=== PATIENT | female | born 1995 | race Caucasian/White ===

== ENCOUNTER → 2020-02-12 13:18 | Outpatient (CLI) | payer MEDICAID, SELFPAY | PROVIDERS: Referring Provider Otolaryngology; Visit Provider Otolaryngology | DX: Z11.59 Encounter for screening for other viral diseases (principal) | CPT/HCPCS: 87635; G2023; U0003 ==

== ENCOUNTER 2020-03-14 10:16 | Day surgery (SDC) | payer MEDICAID, SELFPAY ==
[2020-03-14] VITALS (13 sets, daily range): BP systolic 105–155; BP diastolic 8–132; PULSE 72–102; RESP 16–24; TEMP 36.3–36.7; O2SAT 92–98; BMI 52.8
[2020-03-14 11:06] LABS: Internal QC Validated? YES +Cl - CLEAR BKGD; Pregnancy, Urine Negative Negative
[2020-03-14] MEDS: Lactated Ringers 1,000 ML 100 ML IV ×2 (11:25→12:33)
--- NOTE | 2020-03-14 11:43 | DCINST_ITS ---
Discharge Diet: No Restrictions Discharge Activity: Return to Normal Activity Additional Activity Instructions:: Ear drops 5 drops each ear twice a day for 2 days (3 doses) Allergies/Adverse Reactions: Allergies amoxicillin Allergy (Verified 03/14/20 11:01) Hives cephalexin [From Keflex] Allergy (Verified 03/14/20 11:01) PT UNSURE OF REACTION pseudoephedrine [From Sudafed] Allergy (Verified 03/14/20 11:01) Shortness of breath vancomycin Allergy (Verified 03/14/20 11:01) Itching Medications to take at Discharge NK 02/17/20 Primary Care Physician: Laisha Wolfe DO [Primary Care Provider] - Test Results: Test results from this visit will be discussed in further detail at your follow- up appointment, if applicable.
--- NOTE | 2020-03-14 11:59 | PCM.OPRPT ---
Report of Operation Date of Procedure: 03/14/20 Pre-Operative Diagnosis: recurrent acute otitis media Post-Operative Diagnosis: same Surgery/Procedure Performed:: bilateral myringotomy with tubes Description of Surgical Findings:: full mucoid effusion right ear Type of Anesthesia:: General Anesthesiologist: Daniel Gomes Estimated Blood Loss (mL): minimal Description of Procedure: The patient was taken to the operating room on . The patient was placed in the supine position on the operating room table. The patient was given sufficient general anesthesia. The operating microscope was used throughout the entire case. A speculum was inserted into the patient's left ear. Cerumen was removed using a curette. An incision was placed in the anterior inferior quadrant of the tympanic membrane. A T tube was placed without difficulty. Antibiotic drops were instilled into the patient's ear. Next, a speculum was inserted into the patient's right ear. Cerumen was removed using a curette. An incision was placed in the anterior inferior quadrant of the tympanic membrane. A full mucoid effusion was suctioned away using a #5 suction. A t tube was placed without difficulty. Antibiotic drops were instilled into the patient's ear. The patient was then awoken. They were brought to the recovery room in stable condition. Blood loss minimal replacement none sponge needle and instrument counts correct at the end of the procedure.
--- NOTE | 2020-03-14 12:52 | SUR.PHASEI ---
1240: pt crying, went to give dilaudid when pt stated that she was itching on her feet and stomach. stomach red with small little bumps, nothing noted on feet. T/C to Dr Zully Gomes to report itching and rash about 5min after giving ativan. Order for benadryl received.
[2020-03-14] MEDS: Acetaminophen 325 MG Tablet 650 MG PO (13:44)
== END 2020-03-14 15:19 | disposition home or self-care (01) ==
LOC: SDC 10:16 → AC 10:18
PROVIDERS: Anesthesiology; PCP Internal Medicine; Referring Provider Otolaryngology; Visit Provider Otolaryngology
PROC: (CPT 69436; principal; 2020-03-14 11:45)
DX: H66.006 Acute suppurative otitis media without spontaneous rupture of ear drum, recurrent, bilateral (principal); K21.9 Gastro-esophageal reflux disease without esophagitis; Z11.59 Encounter for screening for other viral diseases; F17.210 Nicotine dependence, cigarettes, uncomplicated
CPT/HCPCS: 00126; 69436; 81025; 87635; G2023; J7120; J2405; U0003

== ENCOUNTER 2024-02-21 16:14 | Emergency (ER) | payer MEDICAID, SELFPAY ==
[2024-02-21 16:16] VITALS: BP 153/106; PULSE 116; RESP 18; TEMP 36.2; O2SAT 98; BMI 62.5
--- NOTE | 2024-02-21 16:30 | EX.ED.DYSGE1 ---
HPI History of Present Illness Chief Complaint: Lower Extremity Injury Detail of Chief Complaint: Knee pain Informant: patient Narrative Narrative: Patient has a history of osteogenesis imperfecta with multiple fractures around her right knee. She had surgery at [facility] in 2010 which required pins and screws. She fell in her kitchen 2 days ago. X-rays reportedly showed a hairline fracture at one of the pin sites. This was reviewed with Ortho and they recommended she go to the emergency room yesterday to get a knee brace. She states she went to 3 different emergency room's to find one that had a knee brace the right size for her. When she asked for pain medication she states that she felt that she was being labeled as a drug seeker and they would not write her any prescriptions. She reports problems with oxycodone and hydrocodone in the past causing itching or vomiting. She has done well with tramadol in the past. She has an appointment to see orthopedics on Saturday. When she was spoke with them about potentially getting pain medication for the weekend she was told to go the emergency room. PFSH PFSH Medical History Seizures History of wrist fracture Arthritis Brittle bone disease Home Medications ?Medication ?Instructions ?Recorded ?Last Taken ?Type tramadol 50 mg tablet 50 mg PO Q4H PRN Pain #20 tabs 02/21/24 Unknown Rx Allergy/AdvReac Type Severity Reaction Status Date / Time clindamycin Allergy Unknown PT UNSURE Verified 02/21/24 16:15 OF REACTION amoxicillin Allergy Hives Verified 02/21/24 16:15 cephalexin (From Keflex) Allergy PT UNSURE Verified 02/21/24 16:15 OF REACTION lorazepam Allergy Rash Verified 02/21/24 16:15 pseudoephedrine (From Allergy Shortness Verified 02/21/24 16:15 Sudafed) of breath vancomycin Allergy Itching Verified 02/21/24 16:15 Surgical History Hx of knee surgery Social History Smoking Status: Current some day smoker ROS ROS ED Constitutional Constitutional ED: Denies chills or fever(s) Eyes Eyes: Denies change in vision Cardiovascular Cardiovascular: Denies chest pain or palpitations Respiratory/Chest Respiratory/Chest: Denies cough or dyspnea Gastrointestinal Gastrointestinal: Denies abdominal pain Musculoskeletal Musculoskeletal: Reports arthralgias; Denies back pain Psychiatric Psychiatric: Denies anxiety or depression EXAM Physical Exam Const Vital Signs: 02/21/24 16:16 Temperature 97.1 F L Temperature Source Temporal Pulse Rate 116 H Respiratory Rate 18 Blood Pressure 153/106 H Blood Pressure Mean 121 Pulse Ox 98 Oxygen Delivery Method Room Air Positive well nourished and well developed General Appearance ED: well developed HEENT Reports moist mucous membranes Eyes EOMs intact bilaterally Chest Wall inspection of chest normal and palpation of chest normal Resp normal respiratory effort and clear to auscultation bilaterally Cardio regular rate and regular rhythm GI non-tender Palpation: soft Extremity Extremity Narrative: Knee immobilizer in place to the right lower extremity. Good distal pulses. Neuro oriented x3 MDM MDM MDM Narrative Medical decision making narrative: Patient does feel that the immobilizer she has is giving her good support. We discussed also using crutches, however she has had a prior shoulder injury as well as bilateral wrist surgeries and does not feel that she can use crutches. We discussed pain medication options. She did recently get a prescription for tramadol but should be out based on the way it was written. She states this seems to work well for her for pain. We talked about a history of seizures. She states she had seizures as a child but her last seizure was at age 4. We did discuss that tramadol can decrease her seizure threshold and she needs to be cautious of this. I will write her a short course of tramadol for the weekend and she will follow-up with orthopedics on Saturday. Discharge Plan Triage Chief Complaint: Lower Extremity Injury ED Provider: Marce Begum Dx/Rx/DC Orders Clinical Impression: Closed fracture of knee region Instructions: ED Fracture, Knee Prescriptions: New tramadol 50 mg tablet 50 mg PO Q4H PRN (Reason: Pain) Qty: 20 0RF Primary Care Provider: Alvin Mayo Referrals: Alvin Mayo MD [Primary Care Provider] - Print Language: Estonian Disposition Disposition: Home, Self Care
== END 2024-02-21 16:44 | disposition home or self-care (01) ==
LOC: ED 16:40
PROVIDERS: Emergency Provider Emergency Medicine; PCP Internal Medicine; Visit Provider Emergency Medicine
DX: S82.001A Unspecified fracture of right patella, initial encounter for closed fracture (principal); F17.200 Nicotine dependence, unspecified, uncomplicated; W19.XXXA Unspecified fall, initial encounter
CPT/HCPCS: 99282

== ENCOUNTER 2024-02-22 11:37 | Emergency (ER) | payer MEDICAID, SELFPAY ==
[2024-02-22 11:38] VITALS: BP 146/94; PULSE 120; RESP 24; TEMP 36.6; O2SAT 95; BMI 53.4
--- NOTE | 2024-02-22 12:03 | EX.ED.DYSGE1 ---
HPI <DAMIAN Santos - Last Filed: 02/22/24 15:10> History of Present Illness Chief Complaint: Lower Extremity Injury Narrative Narrative: 28-year-old female with past medical history of osteogenesis imperfecta was seen here yesterday after she reports having x-rays that showed a hairline fracture of the right knee. She has a history of multiple right knee and leg surgeries with pins. She states she went to multiple emergency rooms and came here to find a knee brace that fit. She was prescribed tramadol 50 mg #20 tablets and is taking 2 tablets every 4 hours but states that is not controlling her pain. She has an appointment with orthopedics in [place] on February 25. PFS <DAMIAN Santos - Last Filed: 02/22/24 15:10> [facility] Medical History Seizures History of wrist fracture Arthritis Brittle bone disease Home Medications ?Medication ?Instructions ?Recorded ?Last Taken ?Type tramadol 50 mg tablet 50 mg PO Q4H PRN Pain #20 tabs 02/21/24 Unknown Rx Allergy/AdvReac Type Severity Reaction Status Date / Time clindamycin Allergy Unknown PT UNSURE Verified 02/21/24 16:15 OF REACTION amoxicillin Allergy Hives Verified 02/21/24 16:15 cephalexin (From Keflex) Allergy PT UNSURE Verified 02/21/24 16:15 OF REACTION lorazepam Allergy Rash Verified 02/21/24 16:15 pseudoephedrine (From Allergy Shortness Verified 02/21/24 16:15 Sudafed) of breath vancomycin Allergy Itching Verified 02/21/24 16:15 Surgical History Hx of knee surgery Social History Smoking Status: Current some day smoker tobacco type: cigarettes ROS <DAMIAN Santos - Last Filed: 02/22/24 15:10> ROS ED ROS Narrative Neuro: Negative for motor/sensory dysfunction. Skin: Negative for rash, abscess, or wound. Musc: Positive for right knee pain. EXAM <DAMIAN Santos - Last Filed: 02/22/24 15:10> Physical Exam Narrative Exam Narrative: CONST: Patient sitting in no acute distress. EYES: Normal inspection. SKIN: Color normal, no rash, warm, dry, intact. EXTREMITIES: Right knee immobilizer on. 01/11 strength dorsiflexion/plantarflexion, normal sensation, 2+ DP pulse. NEURO: Alert and answering questions appropriately. PSYCH: Normal affect. Const Vital Signs: 02/22/24 11:38 02/22/24 14:42 Temperature 97.9 F 97.9 F Temperature Source Temporal Pulse Rate 120 H 93 Respiratory Rate 24 H 18 Blood Pressure 146/94 H 140/74 H Blood Pressure Mean 111 96 Pulse Ox 95 96 Oxygen Delivery Method Room Air <Kolton Garcia MD - Last Filed: 02/22/24 21:41> Physical Exam Const Vital Signs: 02/22/24 11:38 02/22/24 14:42 Temperature 97.9 F 97.9 F Temperature Source Temporal Pulse Rate 120 H 93 Respiratory Rate 24 H 18 Blood Pressure 146/94 H 140/74 H Blood Pressure Mean 111 96 Pulse Ox 95 96 Oxygen Delivery Method Room Air MDM <DAMIAN Santos - Last Filed: 02/22/24 15:10> [facility] MDM Narrative Medical decision making narrative: Patient was prescribed tramadol in our emergency room yesterday for a reported right knee hairline fracture. She states films were done at an outside orthopedic facility in [place], [place] so I do not have access to them. There are no records of a knee x-ray on [facility]. Records do note she has chronic right knee and heel pain from prior injuries. There are multiple provider notes on [facility] suggesting she has a pattern of pain medication seeking behavior. Her former primary care doctor Pao Mackay [employer] last prescribed tramadol on 12/19/2023 and told her further prescriptions need to come from podiatry or pain management. Patient states she is getting a new PCP and has an upcoming appointment. She also has recent ED visits to [facility] and [facility] for the right knee issue both of which provided knee immobilizers and advised against prescription narcotic medication. Since I could not see the outside imaging of her knee a CT of the right knee was obtained. 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 I discussed with her I cannot prescribe further pain medication or gabapentin as she requested. She needs to follow-up with her primary care doctor and orthopedist. I also recommended pain management. She was discharged in stable condition. Radiography Diagnostic Testing: Clinical Impression(s) from Imaging Studies Lower Extremity CT 02/22/24 12:16 IMPRESSION: Small joint effusion. Degenerative changes. Postsurgical changes of the patella. 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 Electronically Signed: Luh Coburn MD at 14:14 EDT , <Kolton Garcia MD - Last Filed: 02/22/24 21:41> MDM Radiography Diagnostic Testing: Clinical Impression(s) from Imaging Studies Lower Extremity CT 02/22/24 12:16 IMPRESSION: Small joint effusion. Degenerative changes. Postsurgical changes of the patella. 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 Electronically Signed: Luh Coburn MD at 14:14 EDT , Treatment and Re-Evaluation :: Dr. Garcia: I have personally performed a face to face assessment of the patient and have reviewed the JODI Note. I performed a substantive portion of the visit including all aspects of the following. My dixon findings include: History is right knee pain. Reported outpatient x-rays with hairline fracture. Seen yesterday and administered tramadol. Patient presents with continued pain in right knee. Exam is afebrile. Vital signs noted. Diffuse tenderness to palpation right knee, no noted effusion. Flexion extension mechanism intact. Medical Decision Making: There were no x-rays visible on clinic sink. I reviewed the radiology report of the CT of the knee. No noted fracture, possible fibroma. Patient will continue her tramadol 100 mg and follow-up with her orthopedic surgeon. I do not feel narcotic pain medication is indicated as she has no evidence of fracture on her CT scan. She will continue to wear her knee immobilizer and follow-up with orthopedics. Disposition is discharged home in stable condition. Other additions or changes: [None] Discharge Plan Triage Chief Complaint: Lower Extremity Injury ED Midlevel Provider: Isabell Gavin ED Provider: Kolton Garcia Dx/Rx/DC Orders Clinical Impression: Acute pain of right knee, Chronic pain Instructions: Knee Pain, ED Fracture, Knee Prescriptions: No Action tramadol 50 mg tablet 50 mg PO Q4H PRN (Reason: Pain) Qty: 20 0RF Primary Care Provider: Alvin Mayo Referrals: Alvin Mayo MD [Primary Care Provider] - Activity Restrictions/Additional Instructions: The CT scan shows no evidence of a fracture. I cannot write more narcotic pain medication from the emergency room. You need to follow-up with primary care, orthopedics, or pain management. I recommend either continuing the tramadol and alternating Tylenol and Motrin every 3 hours as needed. Print Language: Malagasy Disposition Disposition: Home, Self Care Discharge Date/Time: 02/22/24 14:46
--- NOTE | 2024-02-22 12:16 | CT_ITS ---
CT RIGHT LOWER EXTREMITY WITH 3-D IMAGING CLINICAL INDICATION: right knee pain TECHNIQUE: Axial CT images of the RIGHT lower extremity was performed without IV contrast material. Coronal and sagittal reformats were provided. The protocol utilizes one or more of the following dose reduction techniques: automated exposure control, adjustment of mA and/or kV according to patient size,and/or use of iterative reconstruction technique. RADIATION DOSAGE (If Supplied By Facility): CTDIvol = ( 15.35 ) mGy, DLP = ( 445.87 ) mGycm COMPARISON: No relevant prior comparison study available FINDINGS: Bones: There are postsurgical pins and a tension wire within the patella. There are degenerative changes of the medial and lateral compartments and patellofemoral articulation There is a well-circumscribed round sclerotic focus within the proximal tibial diaphysis. There is a small joint effusion. Soft Tissues: The deep soft tissue structures are unremarkable. The superficial soft tissues are unremarkable without evidence of edema, hematoma, or foreign body. CT/Extremity Lower without Contra IMPRESSION: Small joint effusion. Degenerative changes. Postsurgical changes of the patella. 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 Electronically Signed: Luh Coburn MD at 14:14 EDT ,
[2024-02-22 14:42] VITALS: BP 140/74; PULSE 93; RESP 18; TEMP 36.6; O2SAT 96
== END 2024-02-22 14:46 | disposition home or self-care (01) ==
PROVIDERS: Emergency Provider Emergency Medicine; PCP Internal Medicine; Visit Provider Emergency Medicine
DX: M25.561 Pain in right knee (principal); G89.29 Other chronic pain; F17.210 Nicotine dependence, cigarettes, uncomplicated
CPT/HCPCS: 73700; 99282

== ENCOUNTER 2024-02-26 12:59 | Emergency (ER) | payer MEDICAID, SELFPAY ==
[2024-02-26 13:01] VITALS: BP 162/111; PULSE 115; RESP 16; TEMP 36.2; O2SAT 96; BMI 53.7
--- NOTE | 2024-02-26 14:21 | EDS_ITS ---
HPI History of Present Illness Chief Complaint: Lower Extremity Injury Narrative Narrative: 28-year-old female past medical history of osteogenesis imperfecta has been having longstanding problems with pain in her feet for over 3 years. She states that she has a new primary care provider, and had a telemedicine visit with them today. She is post to see a benefits processor in the next few weeks to have her right foot fused. She states she is having problems with pain in her bilateral feet, and swelling of her left ankle. She is concerned because she does not have any more pain medication and they will not refill it until Saturday. She states that they referred her to the emergency department because she needs to be seen in person before they will refill any pain medications. She denies any recent trauma. Her pain is worse with standing and walking. This is more exacerbation of her chronic pain. PFSH PFSH Medical History Migraines Seizures History of wrist fracture Arthritis Brittle bone disease Home Medications ?Medication ?Instructions ?Recorded ?Last Taken ?Type tramadol 50 mg tablet 50 mg PO Q4H PRN Pain #20 tabs 02/21/24 Unknown Rx tramadol 50 mg tablet 50 mg PO Q6H PRN pain 3 days #12 02/26/24 Unknown Rx tabs Allergy/AdvReac Type Severity Reaction Status Date / Time clindamycin Allergy Unknown PT UNSURE Verified 02/26/24 13:03 OF REACTION amoxicillin Allergy Hives Verified 02/26/24 13:03 cephalexin (From Keflex) Allergy PT UNSURE Verified 02/26/24 13:03 OF REACTION lorazepam Allergy Rash Verified 02/26/24 13:03 pseudoephedrine (From Allergy Shortness Verified 02/26/24 13:03 Sudafed) of breath vancomycin Allergy Itching Verified 02/26/24 13:03 Surgical History H/O: Hx of knee surgery Social History Smoking Status: Current some day smoker tobacco type: cigarettes ROS ROS ED ROS Narrative Patient complains of bilateral foot pain and left ankle swelling laterally. No fevers or chills, no recent trauma or falls. EXAM Physical Exam Narrative Exam Narrative: Afebrile. Vital signs noted. HEENT: Normocephalic. Atraumatic. PERRL, EOMI. Neck soft and supple. No point tenderness or step off. Cardiovascular: Regular rate and rhythm. No murmurs, rubs, or gallops appreciated. Respiratory: No tachypnea. Lungs clear to auscultation bilaterally. Gastrointestinal: Abdomen soft, nontender, with normoactive bowel sounds. No rebound or guarding. Neurological: Awake. Alert. Nonfocal, nonlateralizing. Skin: No rash. Normal color. No pallor. Musculoskeletal: No pedal edema. Full range of motion extremities. Mild swelling left lateral malleolus, no palpable Achilles tendon deficit. Palpable bilateral dorsalis pedis pulses. Diffuse tenderness to palpation both feet. Const Vital Signs: 02/26/24 13:01 Temperature 97.2 F L Temperature Source Temporal Pulse Rate 115 H Respiratory Rate 16 Blood Pressure 162/111 H Blood Pressure Mean 128 Pulse Ox 96 Oxygen Delivery Method Room Air MDM MDM MDM Narrative Medical decision making narrative: I reviewed the patient's prior records. In fact I had seen her previously when she reported that she had a right knee fracture that was hairline. CT had been performed at that time and was negative for fracture. I reviewed her [facility] report and she has had recent prescriptions for tramadol, the last being on the 14th, 5 days ago for 4 days. I will obtain x-rays of the bilateral feet to look for occult fracture as she has this history of osteogenesis imperfecta. X-rays of the bilateral feet interpreted by myself independently show no evidence of an acute fracture. I reviewed the radiology report which confirms my independent interpretation. Upon disc charge, she states that she needs to be seen by her new primary care provider at the [facility] in person in order for them to write for pain medications. I reviewed her [facility] report, I will write her a prescription for 50 mg tablets #12 of tramadol. She was told that she should get her chronic pain medications from her primary care provider pain management and not the emergency department. Disposition is discharged home in stable condition. Radiography Diagnostic Testing: Clinical Impression(s) from Imaging Studies Foot X-Ray 02/26/24 14:30 IMPRESSION: Soft tissue swelling. Hallux valgus deformity. Degenerative changes of the talonavicular joint. Electronically Signed: Kevin Mercado MD at 14:54 EDT , Foot X-Ray 02/26/24 14:37 IMPRESSION: Degenerative changes of the tarsal bones. Calcaneal spurs. Soft tissue swelling. Electronically Signed: Kevin Mercado MD at 14:55 EDT , Discharge Plan Triage Chief Complaint: Lower Extremity Injury ED Provider: Kolton Garcia Dx/Rx/DC Orders Clinical Impression: Chronic pain of both feet, Has run out of medications Instructions: ED Chronic Pain Prescriptions: New tramadol 50 mg tablet 50 mg PO Q6H PRN (Reason: pain) 3 Days Qty: 12 0RF No Action tramadol 50 mg tablet 50 mg PO Q4H PRN (Reason: Pain) Qty: 20 0RF Primary Care Provider: Alvin Mayo Referrals: Alvin Mayo MD [Primary Care Provider] - As soon as possible Activity Restrictions/Additional Instructions: Your chronic pain medications should be filled by her primary care provider or pain management, not the emergency department. Print Language: Bulgarian Disposition Disposition: Home, Self Care
--- NOTE | 2024-02-26 14:30 | RAD_ITS ---
STUDY: X-RAY - LEFT FOOT CLINICAL: Female, 28 years old. Foot pain. TECHNIQUE: 3 view(s) of the foot. COMPARISON: None. FINDINGS: Calcaneal spurs. Degenerative changes of the talonavicular joint. Normal metatarsi. There is degenerative arthrosis of the metatarsophalangeal joint of the hallux with a hallux valgus deformity. Normal tibial and fibular sesamoid bones. Normal interphalangeal joint of the great toe. Normal phalanges of the great toe. Normal second through fifth metatarsophalangeal joints. Normal interphalangeal joints and phalanges of the lesser toes. Soft tissue swelling. RAD/Foot min 3 Views IMPRESSION: Soft tissue swelling. Hallux valgus deformity. Degenerative changes of the talonavicular joint. Electronically Signed: Kevin Mercado MD at 14:54 EDT ,
--- NOTE | 2024-02-26 14:37 | RAD_ITS ---
STUDY: X-RAY - RIGHT FOOT CLINICAL: Female, 28 years old. PAIN TECHNIQUE: 3 view(s) of the foot. COMPARISON: None. FINDINGS: Calcaneal spurs. Degenerative changes of the tarsal bones. Normal metatarsi. Normal metatarsophalangeal joint of the great toe. Normal tibial and fibular sesamoid bones. Normal interphalangeal joint of the great toe. Normal phalanges of the great toe. Normal second through fifth metatarsophalangeal joints. Normal interphalangeal joints and phalanges of the lesser toes. Soft tissue swelling. RAD/Foot min 3 Views IMPRESSION: Degenerative changes of the tarsal bones. Calcaneal spurs. Soft tissue swelling. Electronically Signed: Kevin Mercado MD at 14:55 EDT ,
[2024-02-26 15:52] VITALS: BP 128/76; PULSE 82; RESP 16; TEMP 36.4; O2SAT 99
== END 2024-02-26 15:53 | disposition home or self-care (01) ==
PROVIDERS: Emergency Provider Emergency Medicine; PCP Internal Medicine; Visit Provider Emergency Medicine
DX: M79.671 Pain in right foot (principal); M79.672 Pain in left foot; G89.29 Other chronic pain; F17.210 Nicotine dependence, cigarettes, uncomplicated
CPT/HCPCS: 73630; 99282

== ENCOUNTER 2024-02-29 09:06 | Emergency (ER) | payer MEDICAID, SELFPAY ==
[2024-02-29 09:07] VITALS: BP 143/97; PULSE 88; RESP 14; TEMP 36.4; O2SAT 96; BMI 52.3
--- NOTE | 2024-02-29 09:33 | EX.ED.DYSGE1 ---
HPI History of Present Illness Chief Complaint: Other, Pain/Inj Detail of Chief Complaint: Chronic pain bilateral lower extremities Informant: patient Narrative Narrative: Patient presents secondary to chronic pain in the bilateral lower extremities. She had been seen by myself just over a week ago and I wrote her a short course of tramadol as she was supposed to follow-up with orthopedics on Saturday. She states that orthopedics changed her appointment because she developed pain in her feet as well. She has between primary care physicians and the new physician is scheduled to see her on Saturday but will not write her any pain medication until she is seen in person. She is back to the ER twice in the past week to get short courses of tramadol. She did have a CT scan of her knee which revealed no evidence of a fracture. X-rays of her feet were obtained on her last visit. [facility] Medical History Migraines Seizures History of wrist fracture Arthritis Brittle bone disease Home Medications ?Medication ?Instructions ?Recorded ?Last Taken ?Type tramadol 50 mg tablet 50 mg PO Q4H PRN Pain #20 tabs 02/21/24 Unknown Rx tramadol 50 mg tablet 50 mg PO Q6H PRN pain 3 days #12 02/26/24 Unknown Rx tabs tramadol 50 mg tablet 50 mg PO BID PRN pain #6 tabs 02/29/24 Unknown Rx Allergy/AdvReac Type Severity Reaction Status Date / Time clindamycin Allergy Unknown PT UNSURE Verified 02/29/24 09:10 OF REACTION amoxicillin Allergy Hives Verified 02/29/24 09:10 cephalexin (From Keflex) Allergy PT UNSURE Verified 02/29/24 09:10 OF REACTION lorazepam Allergy Rash Verified 02/29/24 09:10 pseudoephedrine (From Allergy Shortness Verified 02/29/24 09:10 Sudafed) of breath vancomycin Allergy Itching Verified 02/29/24 09:10 Surgical History H/O: Hx of knee surgery Social History Smoking Status: Current some day smoker tobacco type: cigarettes ROS ROS ED Constitutional Constitutional ED: Denies chills or fever(s) Eyes Eyes: Denies change in vision Cardiovascular Cardiovascular: Denies chest pain Respiratory/Chest Respiratory/Chest: Denies cough or dyspnea Gastrointestinal Gastrointestinal: Denies abdominal pain Musculoskeletal Musculoskeletal: Reports arthralgias Psychiatric Psychiatric: Denies anxiety or depression EXAM Physical Exam Const Vital Signs: 02/29/24 09:07 02/29/24 09:07 02/29/24 09:23 Temperature 97.6 F L Temperature Source Temporal Pulse Rate 88 88 Respiratory Rate 14 14 Respiratory Effort Normal Blood Pressure 143/97 H 143/97 H Blood Pressure Mean 112 112 Pulse Ox 96 96 Oxygen Delivery Method Room Air Room Air Positive well nourished and well developed General Appearance ED: well developed HEENT Reports moist mucous membranes Eyes EOMs intact bilaterally Chest Wall inspection of chest normal and palpation of chest normal Resp normal respiratory effort and clear to auscultation bilaterally Cardio regular rate and regular rhythm GI non-tender Palpation: soft Extremity Extremity Narrative: Mild diffuse tenderness to both feet. No obvious deformity. No significant edema, erythema, or wounds. Good distal pulses. Neuro oriented x3 MDM MDM MDM Narrative Medical decision making narrative: Patient had previously been on gabapentin but has been tapered off. I advised her I would not restart this as needs to be followed closely by her primary care physician. I told her I would write her 6 tabs of tramadol. This will be to 2 tabs daily for the next 3 days until she is seen by her new doctor on Saturday. I advised her that she cannot continue to present to the emergency room for pain medication. She tells me that she has an appointment with her primary care doctor on Saturday, an upcoming appointment with podiatry, and is scheduled to see pain management in June. Discharge Plan Triage Chief Complaint: Other, Pain/Inj ED Provider: Marce Begum Dx/Rx/DC Orders Clinical Impression: Acute foot pain Instructions: ED Pain, Acute, Uncertain Cause Prescriptions: New tramadol 50 mg tablet 50 mg PO BID PRN (Reason: pain) Qty: 6 0RF No Action tramadol 50 mg tablet 50 mg PO Q4H PRN (Reason: Pain) Qty: 20 0RF tramadol 50 mg tablet 50 mg PO Q6H PRN (Reason: pain) 3 Days Qty: 12 0RF Primary Care Provider: Alvin Mayo Referrals: Alvin Mayo MD [Primary Care Provider] - Activity Restrictions/Additional Instructions: Keep your scheduled appointment for Saturday. Print Language: Estonian Disposition Disposition: Home, Self Care Discharge Date/Time: 02/29/24 09:37
== END 2024-02-29 09:37 | disposition home or self-care (01) ==
PROVIDERS: Emergency Provider Emergency Medicine; PCP Internal Medicine; Visit Provider Emergency Medicine
DX: M79.671 Pain in right foot (principal); M79.672 Pain in left foot; G89.29 Other chronic pain; F17.210 Nicotine dependence, cigarettes, uncomplicated
CPT/HCPCS: 99283

== ENCOUNTER → 2024-03-11 | Outpatient (CLI) | payer MEDICAID, SELFPAY ==
[2024-03-11 13:08] LABS: Amphetamine Urine VISTA NEGATIVE (<1000 ng/mL); Barbiturate Urine VISTA NEGATIVE (< 200 ng/mL); Benzodiazepine Urine VISTA NEGATIVE (< 200 ng/mL); Cocaine Urine VISTA NEGATIVE (< 300 ng/mL); Ecstacy Urine VISTA NEGATIVE (< 500 ng/mL); Methadone Urine VISTA NEGATIVE (< 300 ng/mL); PCP Urine VISTA NEGATIVE (< 25 ng/mL); THC Urine VISTA NEGATIVE (< 50 ng/mL); Vista UDS pH Range 5
== END | disposition home or self-care (01) ==
PROVIDERS: PCP Nurse Practitioner; Visit Provider Anesthesiology
DX: F11.20 Opioid dependence, uncomplicated (principal)
CPT/HCPCS: 36415; 80307

== ENCOUNTER 2024-04-09 18:43 | Emergency (ER) | payer MEDICAID, SELFPAY ==
[2024-04-09 18:43] VITALS: BP 175/100; PULSE 102; RESP 16; TEMP 36.6; O2SAT 98; BMI 52.1
[2024-04-09 22:43] VITALS: BP 115/97; PULSE 89; RESP 18; O2SAT 99
--- NOTE | 2024-04-09 23:09 | EDS_ITS ---
HPI History of Present Illness Chief Complaint: Lower Extremity Injury Narrative Narrative: History of brittle bone disease, fibromyalgia chronic fractures of her bilateral feet followed by podiatry and [facility]. She reports she switched PCPs, seen by practitioner a week ago when she ran out of her gabapentin. She was on 1200 mg 3 times a day. She is on tramadol as needed. She states she was told practitioner does not write for medication she was rescheduled with another provider with appointment in 1 week. She has had increasing flare of her fibromyalgia. Denies any injuries. States chronic fractures of her bilateral feet and chronic low vitamin D therefore surgery is held until her levels are elevated. She has been referred to pain management she states she was contacted today for release of history prior to her appointment. States her last prescription for tramadol was 5 days ago. She was hospitalized mid March she states her gabapentin was ramped up to 1200 mg 3 times a day. Prior similar symptoms: Yes PFSH PFSH Medical History PCOS (polycystic ovarian syndrome) Neuropathy IBS (irritable bowel syndrome) Emotional problems Carpal tunnel syndrome Migraines Seizures History of wrist fracture Arthritis Brittle bone disease Home Medications ?Medication ?Instructions ?Recorded ?Last Taken ?Type tramadol 50 mg tablet 50 mg PO Q4H PRN Pain #20 tabs 02/21/24 Unknown Rx dicyclomine 20 mg tablet 20 mg PO TID 03/03/24 Unknown History hydroxyzine pamoate 50 mg capsule 50 mg PO QDAY PRN 03/03/24 Unknown History ondansetron 4 mg disintegrating 4 mg PO Q6-8H PRN 03/03/24 Unknown History tablet tizanidine 4 mg tablet 4 mg PO BID 03/03/24 Unknown History sumatriptan succinate 100 mg tablet 100 mg PO .COMPLEX #20 tabs 03/17/24 Unknown Rx duloxetine 30 mg capsule,delayed 30 mg PO QDAY #30 caps 03/18/24 Unknown Rx release gabapentin 600 mg tablet 600 mg PO TID 03/18/24 Unknown History propranolol 10 mg tablet 10 mg PO TID PRN anxiety #90 tabs 04/01/24 Unknown Rx gabapentin 600 mg tablet 600 mg PO TID #42 tabs 04/09/24 Unknown Rx tramadol 50 mg tablet 50 mg PO Q6H PRN pain #12 tabs 04/09/24 Unknown Rx Allergy/AdvReac Type Severity Reaction Status Date / Time clindamycin Allergy Unknown PT UNSURE Verified 04/09/24 18:44 OF REACTION amoxicillin Allergy Hives Verified 04/09/24 18:44 cephalexin (From Keflex) Allergy PT UNSURE Verified 04/09/24 18:44 OF REACTION pseudoephedrine (From Allergy Shortness Verified 04/09/24 18:44 Sudafed) of breath vancomycin Allergy Itching Verified 04/09/24 18:44 Family History Brother Anxiety Mental disorder Father Depressed Grandfather Diabetes Myocardial infarction CVA (cerebral vascular accident) Surgical History H/O carpal tunnel repair History of cholecystectomy History of surgery on wrist H/O: Hx of knee surgery Social History Smoking Status: Current some day smoker tobacco type: cigarettes alcohol intake: never substance use type: does not use what type of physical activity do you participate in: none seatbelt use: always do you feel safe at home: Yes ROS ROS ED Constitutional Constitutional ED: Denies chills, fever(s) or sweats Eyes Eyes: Denies change in vision ENT ENT ED: Denies dysphagia or sore throat Cardiovascular Cardiovascular: Denies chest pain, leg edema, palpitations or racing heartbeat Respiratory/Chest Respiratory/Chest: Denies cough, dyspnea or dyspnea on exertion Gastrointestinal Gastrointestinal: Denies abdominal pain, diarrhea, nausea or vomiting Genitourinary Genitourinary ED: Denies dysuria, hematuria or urinary frequency Musculoskeletal Musculoskeletal: Reports myalgias; Denies back pain, extremity pain or neck pain Integumentary Denies rash or wounds Neurologic Neurologic: Denies headache(s), paresthesias or weakness EXAM Physical Exam Const Vital Signs: 04/09/24 18:43 04/09/24 22:43 04/09/24 23:00 Temperature 98 F Temperature Source Temporal Pulse Rate 102 H 89 Respiratory Rate 16 18 Respiratory Effort Normal Respiratory Pattern Normal Blood Pressure 175/100 H 115/97 H Blood Pressure Mean 125 103 Pulse Ox 98 99 Oxygen Delivery Method Room Air Room Air 04/09/24 23:27 Temperature 98.6 F Temperature Source Pulse Rate 89 Respiratory Rate 16 Respiratory Effort Respiratory Pattern Blood Pressure 139/80 H Blood Pressure Mean 99 Pulse Ox 100 Oxygen Delivery Method Positive well nourished and well developed General Appearance ED: well developed and NAD HEENT Reports moist mucous membranes normocephalic and atraumatic Eyes EOMs intact bilaterally and conjunctivae normal General Eye ED: Yes normal appearance of both eyes Neck no lymphadenopathy and supple General: Negative for tenderness Chest Wall Chest: Negative for tenderness Resp normal respiratory effort and normal air movement Effort and Inspection: symmetric chest movement; Negative for respiratory distress Cardio regular rate, regular rhythm and no murmurs Peripheral Pulses: pulses 2+ throughout GI normal to inspection, nondistended, normoactive bowel sounds and non-tender Palpation: Negative for guarding or rebound tenderness present Back/Spine no CVA tenderness and no thoracic nor lumbar tenderness Extremity normal to inspection Extremity Narrative: Soft compartments of her upper and lower extremities. Pulses were intact x 4. General Extremety ED: Negative for edema or tenderness General Extremity: Negative for edema Neuro oriented x3 and no sensory deficits noted Sensorium / Orientation: awake and alert Skin no rashes or lesions noted and no wounds MDM MDM MDM Narrative Medical decision making narrative: Interventions / MDM: Differential diagnosis: Fibromyalgia, brittle bone disease Diagnosis considered but do not suspect: N/A My EKG interpretation: N/A Imaging independently reviewed and interpreted by myself: N/A External documents reviewed: N/A Test considered but not ordered:N/A ED course: Chronic pain with fibromyalgia and brittle bone disease. She is out of her medications. [facility] report notes last prescription of tramadol for 15 tabs 04/05/2024. Last prescription of gabapentin 03/25/2024. Patient's reported history practitioner not writing for medications, will refill for her gabapentin, 12 tabs tramadol for pain control. Doses given in the emergency room. Discussed with patient refills will be needed continued by her PCP team or pain management. She understands this. She is here with her mother. Discharge home. Re-evaluation: stable Disposition discussed with patient/family/significant other: Patient and mother Case discussed with consulting clinician: N/A This note was generated with [employer] dictation software. It may contain incorrect words, spelling, and punctuation that were not noted in checking the note before signing. Discharge Plan Triage Chief Complaint: Lower Extremity Injury Other Complaint: Other, Pain/Inj ED Provider: Constantin Kuhn Dx/Rx/DC Orders Clinical Impression: Brittle bone disease, Chronic pain, Fibromyalgia Instructions: ED Chronic Pain, ED Fibromyalgia Prescriptions: New gabapentin 600 mg tablet 600 mg PO TID Qty: 42 0RF tramadol 50 mg tablet 50 mg PO Q6H PRN (Reason: pain) Qty: 12 0RF No Action tizanidine 4 mg tablet 4 mg PO BID ondansetron 4 mg tablet,disintegrating 4 mg PO Q6-8H PRN hydroxyzine pamoate 50 mg capsule 50 mg PO QDAY PRN dicyclomine 20 mg tablet 20 mg PO TID gabapentin 600 mg tablet 600 mg PO TID duloxetine 30 mg capsule,delayed release(DR/EC) 30 mg PO QDAY Qty: 30 0RF tramadol 50 mg tablet 50 mg PO Q4H PRN (Reason: Pain) Qty: 20 0RF sumatriptan succinate 100 mg tablet 100 mg PO .COMPLEX Qty: 20 0RF Rx Instructions: 100 mg orally; take 1 tab at onset of headache; if no relief, may repeat 1 tab after at least 2 hrs; max = 2 tabs/24 hrs PO Do not exceed 10 doses in one month propranolol 10 mg tablet 10 mg PO TID PRN (Reason: anxiety) Qty: 90 0RF Primary Care Provider: Laney Arechiga Referrals: Giselle Curiel NP-C [Med Staff - Adv Practice Prof] - 3-5 Days Activity Restrictions/Additional Instructions: You were refilled for your medications. Follow-up with your PCP and your referral to pain management. Print Language: Persian Disposition Disposition: Home, Self Care Discharge Date/Time: 04/09/24 23:28
[2024-04-09] MEDS: traMADol 50 MG Tablet PO (23:17)
[2024-04-09] MEDS: Gabapentin 300 MG Capsule 1200 MG PO (23:17)
[2024-04-09 23:27] VITALS: BP 139/80; PULSE 89; RESP 16; TEMP 37; O2SAT 100
== END 2024-04-09 23:28 | disposition home or self-care (01) ==
LOC: ED 23:25
PROVIDERS: Emergency Provider Emergency Medicine; PCP Internal Medicine; Visit Provider Emergency Medicine
DX: Q78.0 Osteogenesis imperfecta (principal); M79.7 Fibromyalgia; F17.210 Nicotine dependence, cigarettes, uncomplicated
CPT/HCPCS: 99284

== ENCOUNTER 2024-04-13 11:34 | Emergency (ER) | payer MEDICAID, SELFPAY ==
[2024-04-13 11:35] VITALS: BP 161/128; PULSE 121; RESP 18; TEMP 36.4; O2SAT 97; BMI 32.6
--- NOTE | 2024-04-13 11:39 | ED.RN ---
actively seeing sr for elevated heart rate. has rx to start propranolol today.
--- NOTE | 2024-04-13 13:00 | EDS_ITS ---
HPI History of Present Illness Chief Complaint: Med Refill Detail of Chief Complaint: Requesting medication refill for tramadol for chronic pain. Informant: patient Onset/Context/Timing Onset: Weeks Context: Gradual Onset Timing: Intermittent Current Severity: Mild Maximum Severity: Moderate Narrative Narrative: 28-year-old female history of osteogenesis imperfecta with multiple feet fractures. States she currently has fractures of both feet. She is out of her tramadol for pain. 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 She also history of diabetes and fibromyalgia. Prior similar symptoms: Yes Recent Illness/Hospitalization: No PFSH PFS Medical History PCOS (polycystic ovarian syndrome) Neuropathy IBS (irritable bowel syndrome) Emotional problems Carpal tunnel syndrome Migraines Seizures History of wrist fracture Arthritis Brittle bone disease Home Medications ?Medication ?Instructions ?Recorded ?Last Taken ?Type tramadol 50 mg tablet 50 mg PO Q4H PRN Pain #20 tabs 02/21/24 Unknown Rx dicyclomine 20 mg tablet 20 mg PO TID 03/03/24 Unknown History hydroxyzine pamoate 50 mg capsule 50 mg PO QDAY PRN 03/03/24 Unknown History ondansetron 4 mg disintegrating 4 mg PO Q6-8H PRN 03/03/24 Unknown History tablet tizanidine 4 mg tablet 4 mg PO BID 03/03/24 Unknown History sumatriptan succinate 100 mg tablet 100 mg PO .COMPLEX #20 tabs 03/17/24 Unknown Rx duloxetine 30 mg capsule,delayed 30 mg PO QDAY #30 caps 03/18/24 Unknown Rx release gabapentin 600 mg tablet 600 mg PO TID 03/18/24 Unknown History propranolol 10 mg tablet 10 mg PO TID PRN anxiety #90 tabs 04/01/24 Unknown Rx gabapentin 600 mg tablet 600 mg PO TID #42 tabs 04/09/24 Unknown Rx tramadol 50 mg tablet 50 mg PO Q6H PRN pain #12 tabs 04/09/24 Unknown Rx Allergy/AdvReac Type Severity Reaction Status Date / Time clindamycin Allergy Unknown PT UNSURE Verified 04/13/24 11:35 OF REACTION amoxicillin Allergy Hives Verified 04/13/24 11:35 cephalexin (From Keflex) Allergy PT UNSURE Verified 04/13/24 11:35 OF REACTION pseudoephedrine (From Allergy Shortness Verified 04/13/24 11:35 Sudafed) of breath vancomycin Allergy Itching Verified 04/13/24 11:35 Family History Brother Anxiety Mental disorder Father Depressed Grandfather Diabetes Myocardial infarction CVA (cerebral vascular accident) Surgical History H/O carpal tunnel repair History of cholecystectomy History of surgery on wrist H/O: Hx of knee surgery Social History Smoking Status: Current some day smoker tobacco type: cigarettes alcohol intake: never substance use type: does not use what type of physical activity do you participate in: none seatbelt use: always do you feel safe at home: Yes ROS ROS ED ROS Narrative Denies recent illness. Review of Systems ROS Unobtainable: Denies due to encephalopathy Constitutional Constitutional ED: Denies chills or fever(s) Eyes Eyes: Denies blurry vision ENT ENT ED: Denies ear pain Cardiovascular Cardiovascular: Denies chest pain Respiratory/Chest Respiratory/Chest: Denies cough or dyspnea Gastrointestinal Gastrointestinal: Denies abdominal pain or constipation Genitourinary Genitourinary ED: Denies dysuria or hematuria Musculoskeletal Musculoskeletal: Denies arthralgias Integumentary Denies abscess Neurologic Neurologic: Denies headache(s) Psychiatric Psychiatric: Denies anxiety or depression Endocrine Endocrinology: Denies cold intolerance Hematologic/Lymphatic Hematologic/Lymphatic: Reports none Allergic/Immunologic Allergic/Immunologic ED: Denies mouth swelling or tongue swelling EXAM Physical Exam Narrative Exam Narrative: Well-appearing 28-year-old female. Vital signs stable afebrile. H EENT exam unremarkable atraumatic. Neck nontender. Lungs clear to auscultation bilaterally. Heart regular rhythm rate about 100 no murmur. Chest wall and ribs nontender. Abdomen soft nontender. Moving all 4 extremities. Nontender no deformity. Both feet and neurovascular intact. She has normal dorsi plantarflexion. No swelling or redness. Back nontender. Neurologically she is awake alert no focal motor deficits. Const Vital Signs: 04/13/24 11:35 Temperature 97.6 F L Temperature Source Temporal Pulse Rate 121 H Respiratory Rate 18 Blood Pressure 161/128 H Blood Pressure Mean 139 Pulse Ox 97 Oxygen Delivery Method Room Air Positive well nourished, well developed and obese; Negative for cachectic, contractures or unkempt General Appearance ED: well developed and NAD; Negative for unkempt, cachectic, contractures, cyanotic, diaphoretic or pallor Nutritional Appearance: obese; Negative for cachectic HEENT Reports moist mucous membranes; Denies dry mucous membranes Negative for trauma or tenderness Mouth ED: No dry mucous membranes Mouth: No dry mucous membranes Eyes PERRL and EOMs intact bilaterally General Eye ED: Negative for pale conjunctiva or scleral icterus Neck no lymphadenopathy, supple and no JVD General: Negative for tenderness Lymph Lymphatic: Negative for other Chest Wall inspection of chest normal and palpation of chest normal Chest: Negative for other Resp normal respiratory effort and clear to auscultation bilaterally Effort and Inspection: Negative for retractions Auscultation: Negative for rales, rhonchi or wheezes Cardio regular rate, regular rhythm, S1 normal heart sound, S2 normal heart sound and no murmurs Palpation: Negative for palpable S3 or palpable S4 Rate: Negative for bradycardia or tachycardic Rhythm: Negative for abnormal rhythm GI normal to inspection, nondistended, normoactive bowel sounds, non-tender, non- distended and no masses Auscultation: normoactive bowel sounds Palpation: soft; Negative for tender, guarding or rebound tenderness present Back/Spine no CVA tenderness General Back: Negative for CVA tenderness Cervical Spine: Negative for cervical spine tenderness Thoracic Spine / Upper Back: Negative for thoracic spinal tenderness or paraspinal muscle tenderness Lumbar Spine / Lower Back: Negative for lumbar spinal tenderness Extremity normal to inspection Extremity Narrative: Both feet neurovascular intact. General Extremety ED: Negative for edema or tenderness General Extremity: Negative for edema Neuro oriented x3 and CN's II-XII intact bilaterally Sensorium / Orientation: alert; Negative for orientation impaired, lethargic or stuporous Motor Exam: strength 5/5 throughout Psych mental status grossly normal Appearance: Negative for unkempt Attitude: No agitated Mood & Affect: Negative for depressed, anxious or tearful Skin no rashes or lesions noted, no wounds and skin turgor normal General Skin Exam: elasticity normal; Negative for jaundice or pallor Lesions: No lesion noted Rashes: No rashes noted Trauma: Negative for abrasion Wounds: Negative for wounds noted MDM MDM MDM Narrative Medical decision making narrative: 28-year-old female with osteogenesis imperfecta with acute on chronic feet pain with a history of feet fractures. Requesting tramadol for pain. I will give her tramadol for pain. She does not need any acute imaging. I explained to her I would not continue to write her for additional prescriptions she can have that done through her primary care physician. Discharge Plan Triage Chief Complaint: Med Refill ED Provider: Michael Ortiz Dx/Rx/DC Orders Clinical Impression: Chronic pain, Brittle bone disease, Fibromyalgia Instructions: ED Chronic Pain Prescriptions: No Action tizanidine 4 mg tablet 4 mg PO BID ondansetron 4 mg tablet,disintegrating 4 mg PO Q6-8H PRN hydroxyzine pamoate 50 mg capsule 50 mg PO QDAY PRN dicyclomine 20 mg tablet 20 mg PO TID gabapentin 600 mg tablet 600 mg PO TID duloxetine 30 mg capsule,delayed release(DR/EC) 30 mg PO QDAY Qty: 30 0RF gabapentin 600 mg tablet 600 mg PO TID Qty: 42 0RF tramadol 50 mg tablet 50 mg PO Q6H PRN (Reason: pain) Qty: 12 0RF tramadol 50 mg tablet 50 mg PO Q4H PRN (Reason: Pain) Qty: 20 0RF sumatriptan succinate 100 mg tablet 100 mg PO .COMPLEX Qty: 20 0RF Rx Instructions: 100 mg orally; take 1 tab at onset of headache; if no relief, may repeat 1 tab after at least 2 hrs; max = 2 tabs/24 hrs PO Do not exceed 10 doses in one month propranolol 10 mg tablet 10 mg PO TID PRN (Reason: anxiety) Qty: 90 0RF Primary Care Provider: Laney Arechiga Referrals: Laney Arechiga MD [Primary Care Provider] - As soon as possible Activity Restrictions/Additional Instructions: Follow-up with your doctor for chronic pain medication prescriptions. Otherwise Motrin and/or Toradol and Tylenol for pain. Print Language: Grenadian Disposition Disposition: Home, Self Care
[2024-04-13 13:12] VITALS: BP 145/99; PULSE 99; RESP 16; TEMP 36.6; O2SAT 99
[2024-04-13 13:15] VITALS: BP 145/99; PULSE 99; RESP 16; TEMP 36.6; O2SAT 99
--- NOTE | 2024-04-13 13:19 | NURSING ---
ptgiven 50mgtramadol.verified package with pt.unable to scan or document
[2024-04-13] MEDS: traMADol 50 MG Tablet PO (13:26)
== END 2024-04-13 13:16 | disposition home or self-care (01) ==
PROVIDERS: Emergency Provider Emergency Medicine; PCP Internal Medicine; Visit Provider Emergency Medicine
DX: G89.29 Other chronic pain (principal); E11.40 Type 2 diabetes mellitus with diabetic neuropathy, unspecified; Z76.0 Encounter for issue of repeat prescription; Q78.0 Osteogenesis imperfecta; M79.7 Fibromyalgia; M79.671 Pain in right foot; M79.672 Pain in left foot; F17.210 Nicotine dependence, cigarettes, uncomplicated
CPT/HCPCS: 99282

== ENCOUNTER 2024-04-24 21:44 | Emergency (ER) | payer MEDICAID, SELFPAY ==
[2024-04-24 21:45] VITALS: BP 178/133; PULSE 122; RESP 18; TEMP 36.6; O2SAT 98; BMI 52.0
--- NOTE | 2024-04-24 22:38 | EX.ED.DYSGE1 ---
HPI History of Present Illness Chief Complaint: Lower Extremity Injury [facility] Medical History PCOS (polycystic ovarian syndrome) Neuropathy IBS (irritable bowel syndrome) Emotional problems Carpal tunnel syndrome Migraines Seizures History of wrist fracture Arthritis Brittle bone disease Home Medications ?Medication ?Instructions ?Recorded ?Last Taken ?Type tramadol 50 mg tablet 50 mg PO Q4H PRN Pain #20 tabs 02/21/24 Unknown Rx dicyclomine 20 mg tablet 20 mg PO TID 03/03/24 Unknown History hydroxyzine pamoate 50 mg capsule 50 mg PO QDAY PRN 03/03/24 Unknown History ondansetron 4 mg disintegrating 4 mg PO Q6-8H PRN 03/03/24 Unknown History tablet tizanidine 4 mg tablet 4 mg PO BID 03/03/24 Unknown History sumatriptan succinate 100 mg tablet 100 mg PO .COMPLEX #20 tabs 03/17/24 Unknown Rx duloxetine 30 mg capsule,delayed 30 mg PO QDAY #30 caps 03/18/24 Unknown Rx release gabapentin 600 mg tablet 600 mg PO TID 03/18/24 Unknown History propranolol 10 mg tablet 10 mg PO TID PRN anxiety #90 tabs 04/01/24 Unknown Rx gabapentin 600 mg tablet 600 mg PO TID #42 tabs 04/09/24 Unknown Rx tramadol 50 mg tablet 50 mg PO Q6H PRN pain #12 tabs 04/09/24 Unknown Rx Allergy/AdvReac Type Severity Reaction Status Date / Time clindamycin Allergy Unknown PT UNSURE Verified 04/24/24 21:47 OF REACTION amoxicillin Allergy Hives Verified 04/24/24 21:47 cephalexin (From Keflex) Allergy PT UNSURE Verified 04/24/24 21:47 OF REACTION pseudoephedrine (From Allergy Shortness Verified 04/24/24 21:47 Sudafed) of breath vancomycin Allergy Itching Verified 04/24/24 21:47 Family History Brother Anxiety Mental disorder Father Depressed Grandfather Diabetes Myocardial infarction CVA (cerebral vascular accident) Surgical History H/O carpal tunnel repair History of cholecystectomy History of surgery on wrist H/O: Hx of knee surgery Social History Smoking Status: Current some day smoker tobacco type: cigarettes alcohol intake: never substance use type: does not use what type of physical activity do you participate in: none seatbelt use: always do you feel safe at home: Yes EXAM Physical Exam Const Vital Signs: 04/24/24 21:45 04/24/24 23:45 Temperature 98 F 97.9 F Temperature Source Temporal Pulse Rate 122 H 75 Respiratory Rate 18 18 Blood Pressure 178/133 H 176/80 H Blood Pressure Mean 148 112 Pulse Ox 98 98 Oxygen Delivery Method Room Air MDM MDM MDM Narrative Medical decision making narrative: HISTORY OF PRESENT ILLNESS: 28-year-old female presents with bilateral foot pain. She endorses she is unable to get pain meds long-term secondary to postpone surgery. She states her surgery is postponed secondary to vitamin D levels. She was instructed to come to the ER, urgent care by her primary care physician for pain medication prescription. Patient has a comminuted story about having a history of osteogenesis imperfecta. Notes she has fractures in her left ankle that occurred 3 months ago. States has been prescribed tramadol by her naval science teacher however that physician has felt uncomfortable prescribing her chronic long-term pain medications. She states her primary care physician does not prescribe controlled substances. She states she has a appointment with pain management in 3 days and would like essentially a prescription to bridge her from now until then. She then states he is going camping with her kids this weekend and would like extra pain control. She states she cannot take oxycodone because it makes her too drowsy but can take tramadol every 4 hours. She denies any new trauma. Denies any loss of movement or sensation. Denies any discoloration redness, fevers or rashes REVIEW OF SYSTEMS: Pertinent positives: Foot pain Pertinent negatives: Numbness, tingling, weakness, PHYSICAL EXAM: Nursing triage notes reviewed, Vital signs reviewed Constitutional: please see mdm Extremities: No edema, no arms deformities, slight prominence of left lateral malleolus. Neuro: Intact sensation L1-S1 dermatomal distributions. Intact 5/5 strength in hip flexion (T12-L3). Knee extension (L2-L4). Ankle dorsiflexion (L4-L5). Ankle plantar flexion (S1). Great toe extension (L5). 2+ patellar and Achilles DTRs. Skin: No rash or lesions noted MEDICAL DECISION MAKING: Chief Complaint: foot pain External records reviewed: Reviewed Clinisync: In her problem list there is no reported brittle bone disease. There is report of fibromyalgia and chronic pain syndrome Factors affecting care: Fibromyalgia, chronic pain syndrome PDMP reviewed: Very concerning narcotic filling behavior multiple prescribers, multiple locations, filling prescriptions prior to all prescriptions being completed. MDM Narrative: Patient was hemodynamically stable, afebrile and nontoxic-appearing. Exam without obvious deformity, symmetric pulses, no focal neurologic deficits. No appreciable tenderness to palpation of bilateral ankles. I suspect strongly patient is displaying pain medication seeking behavior as evidenced by her endorsing further bone disease however this is not documented in outside records, multiple prescriptions from multiple different providers, of The patient and/or family, caregivers express understanding. The patient and/or family, caregivers agrees with the plan. On reassessment the patient initial tachycardia resolved. She remained hypertensive. Shared decision making: I will have a discussion with the patient and or visitors regarding risk/benefits of further testing or admission. They will be made aware of of the risk/benefits inherent in this decision they will be given the opportunity to voice understanding. Total critical care time today provided was at least 0 minutes. This excludes separately billable procedures. Critical care time (if documented) is secondary to the patient having high probability of clinically significant/life threatening deterioration in the patient's condition which required my urgent intervention. Impression: 1. Acute on chronic ankle pain 2. Hypertension 3. Tachycardia Dispo: Discharge home This note was generated with [employer] dictation software. It may contain incorrect words, spelling, and punctuation that were not noted in review of the chart prior to signing. Discharge Plan Triage Chief Complaint: Lower Extremity Injury ED Provider: Nile Mello Dx/Rx/DC Orders Instructions: ED Chronic Pain, ED Fibromyalgia Prescriptions: No Action tizanidine 4 mg tablet 4 mg PO BID ondansetron 4 mg tablet,disintegrating 4 mg PO Q6-8H PRN hydroxyzine pamoate 50 mg capsule 50 mg PO QDAY PRN dicyclomine 20 mg tablet 20 mg PO TID gabapentin 600 mg tablet 600 mg PO TID duloxetine 30 mg capsule,delayed release(DR/EC) 30 mg PO QDAY Qty: 30 0RF gabapentin 600 mg tablet 600 mg PO TID Qty: 42 0RF tramadol 50 mg tablet 50 mg PO Q6H PRN (Reason: pain) Qty: 12 0RF tramadol 50 mg tablet 50 mg PO Q4H PRN (Reason: Pain) Qty: 20 0RF sumatriptan succinate 100 mg tablet 100 mg PO .COMPLEX Qty: 20 0RF Rx Instructions: 100 mg orally; take 1 tab at onset of headache; if no relief, may repeat 1 tab after at least 2 hrs; max = 2 tabs/24 hrs PO Do not exceed 10 doses in one month propranolol 10 mg tablet 10 mg PO TID PRN (Reason: anxiety) Qty: 90 0RF Primary Care Provider: Laney Arechiga Referrals: Racquel Mccann MD [Med Staff - Active Staff] - Laney Arechiga MD [Primary Care Provider] - Activity Restrictions/Additional Instructions: Thank you for trusting us with your care today! Please take Tylenol (2 pills, 650 mg), ibuprofen (2 pills, 400 mg) every 6 hours as needed for pain and fever control. Please use alternative pain modalities including ice, rest, heat, massage. Please return to the emergency department if your symptoms change or worsen. Please follow with your primary care physician for further outpatient evaluation and management. Print Language: Chadian Disposition Disposition: Home, Self Care Discharge Date/Time: 04/24/24 23:47
[2024-04-24 23:45] VITALS: BP 176/80; PULSE 75; RESP 18; TEMP 36.6; O2SAT 98
== END 2024-04-24 23:47 | disposition home or self-care (01) ==
PROVIDERS: Emergency Provider Emergency Medicine; PCP Internal Medicine; Visit Provider Emergency Medicine
DX: M25.572 Pain in left ankle and joints of left foot (principal); M25.571 Pain in right ankle and joints of right foot; R00.0 Tachycardia, unspecified; G89.4 Chronic pain syndrome; I10 Essential (primary) hypertension; Z90.49 Acquired absence of other specified parts of digestive tract; F17.210 Nicotine dependence, cigarettes, uncomplicated
CPT/HCPCS: 99282

== ENCOUNTER 2024-04-25 20:21 | Emergency (ER) | payer MEDICAID, SELFPAY ==
[2024-04-25 20:22] VITALS: BP 171/129; PULSE 113; RESP 20; TEMP 36.8; O2SAT 91; BMI 51.5
--- NOTE | 2024-04-25 20:50 | EX.ED.DYSGE1 ---
HPI History of Present Illness Chief Complaint: Other, Pain/Inj Informant: patient Onset/Context/Timing Onset: Month(s) Context: Gradual Onset Timing: Continuous Current Severity: Mild Maximum Severity: Mild Narrative Narrative: 28-year-old female history of brittle bone disease. Has reportedly foot fractures which she is seeing a dialysis biomed technician for an admission. They delayed her surgery due to vitamin D deficiency. She is complaining of chronic pain. She is out of her tramadol. Her primary care provider will prescribe it for her. She is following up with pain management on Saturday. Prior similar symptoms: Yes Recent Illness/Hospitalization: No PFSH PFS Medical History PCOS (polycystic ovarian syndrome) Neuropathy IBS (irritable bowel syndrome) Emotional problems Carpal tunnel syndrome Migraines Seizures History of wrist fracture Arthritis Brittle bone disease Home Medications ?Medication ?Instructions ?Recorded ?Last Taken ?Type tramadol 50 mg tablet 50 mg PO Q4H PRN Pain #20 tabs 02/21/24 Unknown Rx dicyclomine 20 mg tablet 20 mg PO TID 03/03/24 Unknown History hydroxyzine pamoate 50 mg capsule 50 mg PO QDAY PRN 03/03/24 Unknown History ondansetron 4 mg disintegrating 4 mg PO Q6-8H PRN 03/03/24 Unknown History tablet tizanidine 4 mg tablet 4 mg PO BID 03/03/24 Unknown History sumatriptan succinate 100 mg tablet 100 mg PO .COMPLEX #20 tabs 03/17/24 Unknown Rx duloxetine 30 mg capsule,delayed 30 mg PO QDAY #30 caps 03/18/24 Unknown Rx release gabapentin 600 mg tablet 600 mg PO TID 03/18/24 Unknown History propranolol 10 mg tablet 10 mg PO TID PRN anxiety #90 tabs 04/01/24 Unknown Rx gabapentin 600 mg tablet 600 mg PO TID #42 tabs 04/09/24 Unknown Rx tramadol 50 mg tablet 50 mg PO Q6H PRN pain #12 tabs 04/09/24 Unknown Rx tramadol 50 mg tablet 50 mg PO BID PRN pain 3 days #6 04/25/24 Unknown Rx tabs Allergy/AdvReac Type Severity Reaction Status Date / Time clindamycin Allergy Unknown PT UNSURE Verified 04/24/24 21:47 OF REACTION amoxicillin Allergy Hives Verified 04/24/24 21:47 cephalexin (From Keflex) Allergy PT UNSURE Verified 04/24/24 21:47 OF REACTION pseudoephedrine (From Allergy Shortness Verified 04/24/24 21:47 Sudafed) of breath vancomycin Allergy Itching Verified 04/24/24 21:47 Family History Brother Anxiety Mental disorder Father Depressed Grandfather Diabetes Myocardial infarction CVA (cerebral vascular accident) Surgical History H/O carpal tunnel repair History of cholecystectomy History of surgery on wrist H/O: Hx of knee surgery Social History Smoking Status: Current some day smoker tobacco type: cigarettes alcohol intake: never substance use type: does not use what type of physical activity do you participate in: none seatbelt use: always do you feel safe at home: Yes ROS ROS ED ROS Narrative Denies recent illness. Constitutional Constitutional ED: Denies fever(s) Eyes Eyes: Denies blurry vision ENT ENT ED: Denies ear pain Cardiovascular Cardiovascular: Denies chest pain Respiratory/Chest Respiratory/Chest: Denies cough Gastrointestinal Gastrointestinal: Denies abdominal pain Genitourinary Genitourinary ED: Denies dysuria Musculoskeletal Musculoskeletal: Denies arthralgias Integumentary Denies abscess Neurologic Neurologic: Denies headache(s) Psychiatric Psychiatric: Denies anxiety Endocrine Endocrinology: Denies cold intolerance Hematologic/Lymphatic Hematologic/Lymphatic: Reports none Allergic/Immunologic Allergic/Immunologic ED: Denies mouth swelling or tongue swelling EXAM Physical Exam Narrative Exam Narrative: Follow-up in 28-year-old female para vital signs stable afebrile. Elevated blood pressure. She is anxious. H EENT exam unremarked. Neck nontender. Lungs clear to auscultation. Heart tachycardic rate of 110 no murmur. Chest wall ribs nontender. Abdomen soft nontender. Moving all 4 extremities. Nontender no edema. Neurologically she is awake alert no focal motor deficits. Const Vital Signs: 04/25/24 20:22 Temperature 98.2 F Temperature Source Temporal Pulse Rate 113 H Respiratory Rate 20 H Blood Pressure 171/129 H Blood Pressure Mean 143 Pulse Ox 91 Oxygen Delivery Method Room Air Positive well nourished, well developed and obese; Negative for cachectic, contractures or unkempt General Appearance ED: well developed and NAD; Negative for unkempt, cachectic, contractures, cyanotic, diaphoretic or pallor Nutritional Appearance: obese; Negative for cachectic HEENT Reports moist mucous membranes Negative for trauma or tenderness Eyes PERRL and EOMs intact bilaterally General Eye ED: Negative for pale conjunctiva Neck no lymphadenopathy, supple and no JVD General: Negative for tenderness Chest Wall inspection of chest normal and palpation of chest normal Chest: Negative for other Resp normal respiratory effort and clear to auscultation bilaterally Effort and Inspection: Negative for retractions Auscultation: Negative for rales, rhonchi or wheezes Cardio regular rhythm, S1 normal heart sound, S2 normal heart sound and no murmurs; Negative for regular rate Rate: tachycardic GI normal to inspection, nondistended, normoactive bowel sounds, non-tender, non-distended and no masses Palpation: soft; Negative for tender, guarding or rebound tenderness present Back/Spine no CVA tenderness Extremity normal to inspection General Extremety ED: Negative for edema or tenderness General Extremity: Negative for edema Neuro oriented x3 and CN's II-XII intact bilaterally Sensorium / Orientation: alert; Negative for orientation impaired, lethargic or stuporous Psych mental status grossly normal Appearance: Negative for unkempt Attitude: No agitated Mood & Affect: anxious; Negative for depressed or tearful Skin no rashes or lesions noted, no wounds and skin turgor normal General Skin Exam: Negative for jaundice or pallor Lesions: No lesion noted Rashes: No rashes noted Trauma: Negative for abrasion Wounds: Negative for wounds noted MDM MDM MDM Narrative Medical decision making narrative: Patient with acute on chronic pain. She will be given 1 tramadol here and a prescription for 6 for the next 3 days so she follows up with pain management. I explained the patient has all we can do today. She did not need any further imaging or workup. Discharge Plan Triage Chief Complaint: Other, Pain/Inj ED Provider: Michael Ortiz Dx/Rx/DC Orders Clinical Impression: Brittle bone disease, Chronic pain, Generalized anxiety disorder Instructions: ED Chronic Pain Prescriptions: New tramadol 50 mg tablet 50 mg PO BID PRN (Reason: pain) 3 Days Qty: 6 0RF No Action tizanidine 4 mg tablet 4 mg PO BID ondansetron 4 mg tablet,disintegrating 4 mg PO Q6-8H PRN hydroxyzine pamoate 50 mg capsule 50 mg PO QDAY PRN dicyclomine 20 mg tablet 20 mg PO TID gabapentin 600 mg tablet 600 mg PO TID duloxetine 30 mg capsule,delayed release(DR/EC) 30 mg PO QDAY Qty: 30 0RF gabapentin 600 mg tablet 600 mg PO TID Qty: 42 0RF tramadol 50 mg tablet 50 mg PO Q6H PRN (Reason: pain) Qty: 12 0RF tramadol 50 mg tablet 50 mg PO Q4H PRN (Reason: Pain) Qty: 20 0RF sumatriptan succinate 100 mg tablet 100 mg PO .COMPLEX Qty: 20 0RF Rx Instructions: 100 mg orally; take 1 tab at onset of headache; if no relief, may repeat 1 tab after at least 2 hrs; max = 2 tabs/24 hrs PO Do not exceed 10 doses in one month propranolol 10 mg tablet 10 mg PO TID PRN (Reason: anxiety) Qty: 90 0RF Primary Care Provider: Laney Arechiga Referrals: Laney Arechiga MD [Primary Care Provider] - As Needed Activity Restrictions/Additional Instructions: Follow-up with your pain management doctor. Print Language: Bahamian Disposition Disposition: Home, Self Care
[2024-04-25 21:02] VITALS: BP 160/15; PULSE 99; RESP 20; TEMP 36.8; O2SAT 92
== END 2024-04-25 21:16 | disposition home or self-care (01) ==
PROVIDERS: Emergency Provider Emergency Medicine; PCP Internal Medicine; Visit Provider Emergency Medicine
DX: G89.29 Other chronic pain (principal); F41.1 Generalized anxiety disorder; Q78.0 Osteogenesis imperfecta; K58.9 Irritable bowel syndrome, unspecified; Z90.49 Acquired absence of other specified parts of digestive tract; F17.210 Nicotine dependence, cigarettes, uncomplicated
CPT/HCPCS: 99283